=== PATIENT | male | born 1955 | race Caucasian/White ===

== ENCOUNTER → 2017-04-06 | Outpatient (CLI) | payer MEDICARE, OTHER ==
--- NOTE | 2017-04-06 12:59 | XR ---
EXAMINATION TYPE: XR lumbar spine 2 or 3V DATE OF EXAM: 04/06/2017 CLINICAL HISTORY: pain TECHNIQUE: Three views of the lumbar spine are submitted. COMPARISON: None. FINDINGS: There are 5 lumbar type vertebral bodies identified. The lumbar spine shows satisfactory alignment w ithout evidence of acute fracture or dislocation. Vertebral body heights are within normal limits. [id number] degenerative disc space narrowing greatest at 045 and L5-S1. Moderate facet joint ar thropathy. Mild ventral spondylosis. The overlying soft tissue appears unremarkable. IMPRESSION: No acute fracture or dislocation is seen in the lumbar spine. ICD 10 NO FRACTURE, INITIAL EVALUATION
--- NOTE | 2017-04-06 13:04 | XR ---
EXAMINATION TYPE: XR cervical spine comp DATE OF EXAM: 04/06/2017 CLINICAL HISTORY: pain COMPARISON: NONE TECHNIQUE: Frontal, lateral, oblique, swimmers, and open mouth view of the cervical spine are obtaine d. FINDINGS: There is reversal of the normal cervical lordosis which can be seen in patients with muscle spasticity. Severe narrowing noted at C5-6 and C6-7. Endplate sclerosis and facet joint arthropathy. Ventral and dorsal spondylosis identified. Bilateral foraminal encroachment at C5-6. No evidence for fracture or subluxation. IMPRESSION: Degenerative disc disease and spondylosis. Foraminal encroachment at C5-6 bilaterally.
== END | disposition home or self-care (01) ==
LOC: RADXRMAIN 12:00
PROVIDERS: ATTEND Nurse Practitioner
DX: M50.30 Other cervical disc degeneration, unspecified cervical region (principal); M47.812 Spondylosis without myelopathy or radiculopathy, cervical region; M54.5 Low back pain
CPT/HCPCS: 72050; 72100

== ENCOUNTER → 2017-10-02 | Outpatient (CLI) | payer MEDICARE, OTHER ==
[2017-10-01 14:45] VITALS: BMI 33.4
[2017-10-02 13:09] VITALS: BP 179/107; PULSE 76; RESP 20; TEMP 98.1
--- NOTE | 2017-10-02 13:38 | P.CONS ---
History of Present Illness - Reason for Consult Consult date: 10/02/17 - History of Present Illness This is 61 years old male, with a chronic history of severe neck pain, and low back pain, the pain started more than 20 years ago, after accident, and he continued to have severe neck pain with radiation to the left upper extremity associated with numbness and tingling sensation, the pain is constant and increases with any activity, he denies any motor or sensory deficit, he denies any fever or night sweats, denies any change in the bowel movements or urination , and the low back pain localized in the low back area, and is not ready to the lower extremity, intensity of the pain 6-8/10 and increases with any activity Past Medical History Past Medical History: CVA/TIA, Eye Disorder, Hypertension, Myocardial Infarction ([place]) Additional Past Medical History / Comment(s): depression, arthritis, CATARACT LT EYE Last Myocardial Infarction Date:: UNK History of Any Multi-Drug Resistant Organisms: None Reported Additional Past Surgical History / Comment(s): BILAT CORNEA TRANSPLANT. CATARACT RT EYE. TESTICLE REMOVED NOT SURE WHICH ONE. COLONOSCOPY Past Anesthesia/Blood Transfusion Reactions: No Reported Reaction Past Psychological History: Depression, PTSD Smoking Status: Never smoker Past Alcohol Use History: Occasional Past Drug Use History: None Reported - Past Family History Father Family Medical History: Cancer Medications and Allergies Home Medications Medication Instructions Recorded Confirmed Type Unable To Assess [Unable to Assess] 10/01/17 10/01/17 History Allergies Allergy/AdvReac Type Severity Reaction Status Date / Time Latex, Natural Rubber AdvReac Rash/Hives Verified 10/02/17 12:50 Physical Exam Vitals: Vital Signs Temp Pulse Resp BP Pulse Ox 10/02/17 12:54 98.1 F 76 20 179/107 98 Social history : not smoker , NO ETOH , NO Illegal drugs use . Review of Systems : 1- Constitutional : no chills , no fever , no night sweats , 2- Ears : no ear discharge , no change in hearing 3-Nose, Mouth ,Throat ; no bleeding gums, no sore throat , no epistaxis , 4-Cardiovascular : Denies chest pain, , no orthopnea , no palpitation 5-Respiratory : Denies cough , no dyspnea , no hemoptysis 6-Gastrointestinal :, no change in bowel habits , no coffee- ground emesis . 7-Genitourinary : No hematuria , no discharge , no incontinence, 8-Musculoskeletal : No gait dysfunction , report low back pain , neck pain and left upper extremity numbness , 9- Neurological : no ataxia , no tremor , no sezure , 10-Psychatric , no suicidal ideation no hallucination 11- Endocrine : no cold intolerence , no polyuria , no polydypsia , 12-Hematologic : no easy bleeding , no easy brusing , 13-Allergic / immunology : no angioedema , no wheezing ,no allergic rhinitis 14-Integumentary : no brttle nails , no change hair / nails , no foot/leg ulcers . Physical Examinations : 1-Constitutional : Cooperative , not in acute distress . 2-HEENT : nech ; supple , no Lymphadenopathy , no Thyromegaly , :eyes , no icterus, no photophobia . ENT : , normal oropharynx , no Thrush 3- Respiratory : Chest clear to auscultations Bilaterally , no wheezing . 4- Cardiovascular : regular rate and rhythem , S1 , S2 , no S3 , no S4. 5- Gastrointestinal: abdomen soft no tenderness , no organomegally . 6- Genitourinary : Defferred . 7-Integumentary : No cellulitis , no ulcers , normal skin turgor , no cyanotic . 8- neurologic : Cranial nerve II to XII intact , no focal neurological deffecit 9-psychatric : alert , oriented X 3 , appropriate affect , intact judgment and insight . 10-Lymphatic : no Lymphadenopathy. 11- musculoskeltal: normal gait Cervical Spine motor stregnth in the deltoid and biceps, normal right side , normal Left side motor stregnth biceps and the wrist extensors normal right side ,normal left side . motor stregnth in the triceps muscle . normal Right side , normal Left side deep tendon reflexes normal at the biceps , normal at Brachioradialis , normal at triceps. negative cervical facet loading test . Normal sensation in the upper extremity bilaterally Lumber spine moter stegnth lower extremities ,thigh and legs 5/5 Right side , 5/5 Left side deep tendon reflexes : normal Knee Jerk , normal ankle Jerk positive lumber facet Loading Test Range of motion of the lumbar spine Flexion 60 degrees, extension 10 degrees strait leg raising test negative bilaterally Fabere test negative bilaterally. Results Comments: MRI of the cervical spine= 10 Jill Miner in 07/18/2017= C56 disc bulging that is left-sided foraminal encroachment at C3 4 and disc bulging X-ray of the lumbar spine= lumbar degenerative disc disease and lumbar facet arthropathy Assessment and Plan Assessment: Assessment and plan= cervical radiculopathy cervical degenerative disc disease, patient could benefit from cervical epidural steroid injections under fluoroscopy . Low back pain secondary to lumbar spondylosis. Procedure risk and benefits and alternatives discussed with the patient and he agreed with proceeding. Time with Patient: Greater than 30
== END | disposition home or self-care (01) ==
LOC: PNWHC3 12:41
PROVIDERS: ATTEND Specialist
DX: G89.29 Other chronic pain (principal); M50.10 Cervical disc disorder with radiculopathy, unspecified cervical region; M47.816 Spondylosis without myelopathy or radiculopathy, lumbar region; I10 Essential (primary) hypertension; I25.2 Old myocardial infarction; F32.9 Major depressive disorder, single episode, unspecified; F10.20 Alcohol dependence, uncomplicated; Z91.040 Latex allergy status; Z86.73 Personal history of transient ischemic attack (TIA), and cerebral infarction without residual deficits
CPT/HCPCS: 99211

== ENCOUNTER → 2017-10-02 | Outpatient (CLI) | payer MEDICARE, OTHER ==
[2017-10-02 14:31] LABS: Appearance,Urine Clear (Clear); Basophils % (A) 1 %; Bilirubin,Urine Negative (Negative); Blood,Urine Negative (Negative); Color,Urine Yellow; Eosinophils # (A) 0.2 k/uL (0-0.7); Eosinophils % (A) 2 %; Glucose,Urine (UA) Negative (Negative); HCT 46.7 % (39.0-53.0); HGB 14.7 gm/dL (13.0-17.5); Ketones,Urine Negative (Negative); Leukocyte Esterase,Urine Negative (Negative); Lymphocytes % (A) 13 %; MCH 28.4 pg (25.0-35.0); MCHC 31.6 g/dL (31.0-37.0); MCV 89.8 fL (80.0-100.0); Mean Platelet Volume 6.8; Monocytes # (A) 0.4 k/uL (0-1.0); Monocytes % (A) 5 %; Neutrophils # (A) 6.4 k/uL (1.3-7.7); Neutrophils % (A) 79 %; Nitrite,Urine Negative (Negative); PH, Urine 5.5 (5.0-8.0); Platelet Count 209 k/uL (150-450); Protein,Urine Trace (Negative); RDW 13.8 % (11.5-15.5); Specific Gravity,Urine 1.018 (1.001-1.035); WBC 8.1 k/uL (3.8-10.6)
[2017-10-02 14:49] LABS: Albumin 4.4 g/dL (3.5-5.0); Calcium 9.6 mg/dL (8.4-10.2); Phosphorus 3.7 mg/dL (2.5-4.5); Potassium 5.5 mmol/L (3.5-5.1); Total Bilirubin 0.8 mg/dL (0.2-1.3); Total Protein 7.3 g/dL (6.3-8.2)
== END | disposition home or self-care (01) ==
LOC: LABWHC1 13:47
PROVIDERS: ATTEND Nurse Practitioner
DX: I12.9 Hypertensive chronic kidney disease with stage 1 through stage 4 chronic kidney disease, or unspecified chronic kidney disease (principal); N18.9 Chronic kidney disease, unspecified; Z79.899 Other long term (current) drug therapy
CPT/HCPCS: 36415; 80053; 81003; 84100; 85025

== ENCOUNTER → 2017-11-01 | Day surgery (SDC) | payer MEDICARE, OTHER ==
[2017-10-31 08:48] VITALS: BMI 34.2
[~2017-11-01] MED LIST: LACTATED RINGERS 1,000 ML IV SCH
[2017-11-01 07:29] VITALS: BP 124/84; PULSE 65; RESP 18; TEMP 98.1
== END | disposition home or self-care (01) ==
LOC: ORPAIN 06:38
PROVIDERS: ATTEND Specialist
DX: G89.29 Other chronic pain (principal); Z53.8 Procedure and treatment not carried out for other reasons; B88.8 Other specified infestations

== ENCOUNTER 2017-11-15 08:10 | Day surgery (SDC) | payer MEDICARE, OTHER ==
[2017-11-14 08:17] VITALS: BMI 33.4
[2017-11-15 08:23] VITALS: BP 137/89; PULSE 85; RESP 16; TEMP 98.2
[2017-11-15] MEDS ORDERED: LIDOCAINE 1% 20 ML VIAL (10MG/ML) FOR IV START INTRADERMA ONE (08:23)
--- NOTE | 2017-11-15 09:52 | P.PN ---
Progress Note - Text Progress Note Date: 11/15/17 This is a 62 years old male with a chronic history of severe neck pain, radiation to the upper extremity, he was scheduled to have cervical epidural steroid injections, the fluoroscopy guidance, the interview today patient reported that he held held the ELIQUIS only for 36 hours , and the guidelines is to held the Eliquis for 48 hours, the procedure canceled and will be rescheduled , because we don't do pain clinic Sunday/Sunday or Sunday and he will be scheduled, next week or after
== END 2017-11-15 10:15 | disposition home or self-care (01) ==
LOC: ORPAIN 08:10
PROVIDERS: ATTEND Specialist
DX: M54.2 Cervicalgia (principal); Z53.8 Procedure and treatment not carried out for other reasons; Z79.01 Long term (current) use of anticoagulants

== ENCOUNTER 2017-11-19 01:04 | Emergency (ER) | payer MEDICARE, OTHER ==
[2017-11-19 01:16] LABS: Glucose,Whole Blood 93 mg/dL (75-99)
[2017-11-19 02:13] LABS: Basophils % (A) 1 %; Eosinophils # (A) 0.2 k/uL (0-0.7); Eosinophils % (A) 4 %; HCT 41.7 % (39.0-53.0); HGB 13.7 gm/dL (13.0-17.5); Lymphocytes # (A) 1.4 k/uL (1.0-4.8); Lymphocytes % (A) 24 %; MCH 27.9 pg (25.0-35.0); Mean Platelet Volume 7.2; Monocytes # (A) 0.4 k/uL (0-1.0); Monocytes % (A) 7 %; Neutrophils # (A) 3.8 k/uL (1.3-7.7); Neutrophils % (A) 62 %; Platelet Count 202 k/uL (150-450); RBC 4.93 m/uL (4.30-5.90); RDW 14.4 % (11.5-15.5); WBC 6.1 k/uL (3.8-10.6)
[2017-11-19 02:14] LABS: Appearance,Urine Clear (Clear); Bilirubin,Urine Negative (Negative); Blood,Urine Negative (Negative); Color,Urine Light Yellow; Glucose,Urine (UA) Negative (Negative); Ketones,Urine Negative (Negative); Leukocyte Esterase,Urine Negative (Negative); Nitrite,Urine Negative (Negative); Protein,Urine Negative (Negative); Specific Gravity,Urine 1.008 (1.001-1.035); Urobilinogen,Urine <2.0 mg/dL (<2.0)
--- NOTE | 2017-11-19 02:18 | ED ---
Dizziness HPI - General Chief Complaint: Dizziness Stated Complaint: Syncope Time Seen by Provider: 11/19/17 01:06 Source: patient, family, EMS Mode of arrival: EMS Limitations: no limitations - History of Present Illness Initial Comments: This patient is 62-year-old man who presents to be evaluated for "dizziness" that is been going on over the course of this evening. The patient states that he had gotten up to use the bathroom and when he stood up he felt lightheaded. He notes that he had taken his sleeping pill probably about an hour before the symptoms came on. He felt like his vision was going out and then he believes she passed out. He was able to get up and then he noticed that after he got up he was feeling lightheaded and believes that he may have passed out a second time as well. He denies any trauma stating that he doesn't think that he injured anything. He denies head or neck pain, no chest, back, abdomen or extremity pain. The patient denies diaphoresis, dyspnea, palpitations, nausea or vomiting. MD Complaint: lightheadedness, near syncope -: hour(s) Timing: sudden onset Description: lightheadedness History of Same: Yes History of Trauma: No Severity: moderate Associated Symptoms: denies other symptoms - Related Data Home Medications Medication Instructions Recorded Confirmed Atorvastatin [Lipitor] 10 mg PO DAILY 10/02/17 11/14/17 DULoxetine HCL [Cymbalta] 60 mg PO BID 10/02/17 11/14/17 Gabapentin [Neurontin] 600 mg PO TID 10/02/17 11/14/17 Metoprolol Tartrate [Lopressor] 50 mg PO BID 10/02/17 11/14/17 Omeprazole [Omeprazole] 20 mg PO DAILY 10/02/17 11/14/17 QUEtiapine [SEROquel] 200 mg PO HS 10/02/17 11/14/17 cloNIDine HCL [Catapres] 0.1 mg PO BID 10/02/17 11/14/17 Albuterol Inhaler [Ventolin Hfa 1 - 2 puff INHALATION Q6HR PRN 10/31/17 11/14/17 Inhaler] Apixaban [Eliquis] 2.5 mg PO BID 10/31/17 11/14/17 Ergocalciferol (Vitamin D2) 50,000 unit PO Q7D 10/31/17 11/14/17 [Vitamin D2] amLODIPine [Norvasc] 10 mg PO DAILY 10/31/17 11/14/17 Acetaminophen [Tylenol] 325 mg PO Q4H 11/14/17 11/14/17 Cyanocobalamin [Vitamin B-12 1,000 mcg SQ WEEKLY 11/14/17 11/14/17 Injection] Allergies Allergy/AdvReac Type Severity Reaction Status Date / Time Latex, Natural Rubber AdvReac Rash/Hives Verified 11/19/17 01:10 Review of Systems ROS Statement: Those systems with pertinent positive or pertinent negative responses have been documented in the HPI. ROS Other: All systems not noted in ROS Statement are negative. Constitutional: Denies: fever, chills Eyes: Denies: vision change Respiratory: Denies: cough, dyspnea Cardiovascular: Reports: syncope. Denies: chest pain, palpitations, orthopnea, edema Gastrointestinal: Denies: abdominal pain, nausea, vomiting Musculoskeletal: Denies: back pain Skin: Denies: rash Neurological: Denies: headache, weakness, numbness, confusion Past Medical History Past Medical History: CVA/TIA, Eye Disorder, Hypertension, Myocardial Infarction ([place]) Additional Past Medical History / Comment(s): depression, arthritis, CATARACT LT EYE, eye sight is very poor, occasional dizziness, hx bed bugs in home, , Last Myocardial Infarction Date:: UNK History of Any Multi-Drug Resistant Organisms: None Reported Additional Past Surgical History / Comment(s): BILAT CORNEA TRANSPLANT. CATARACT RT EYE. TESTICLE REMOVED NOT SURE WHICH ONE. COLONOSCOPY, Past Anesthesia/Blood Transfusion Reactions: No Reported Reaction Past Psychological History: Depression, PTSD Smoking Status: Never smoker Past Alcohol Use History: None Reported Past Drug Use History: None Reported - Past Family History Father Family Medical History: Cancer General Exam Limitations: no limitations General appearance: alert, in no apparent distress Head exam: Present: atraumatic, normocephalic Eye exam: Present: normal appearance. Absent: scleral icterus, conjunctival injection Pupils: Present: miosis ENT exam: Present: mucous membranes dry, TM's normal bilaterally Neck exam: Present: normal inspection, full ROM. Absent: tenderness Respiratory exam: Present: normal lung sounds bilaterally. Absent: respiratory distress, wheezes, rales, rhonchi, stridor, chest wall tenderness Cardiovascular Exam: Present: regular rate, normal rhythm, normal heart sounds. Absent: systolic murmur, diastolic murmur, rubs, gallop GI/Abdominal exam: Present: soft, normal bowel sounds. Absent: distended, tenderness, guarding, rebound, rigid, mass Extremities exam: Present: normal inspection, normal capillary refill. Absent: pedal edema, calf tenderness Back exam: Present: normal inspection. Absent: CVA tenderness (R), CVA tenderness (L) Neurological exam: Absent: altered, oriented X3, motor sensory deficit Skin exam: Present: warm, dry, intact, normal color. Absent: rash Course Vital Signs 11/19/17 11/19/17 11/19/17 01:05 01:19 03:02 Temperature 97.1 F L 96.9 F L Pulse Rate 68 83 65 Respiratory 18 18 15 Rate Blood Pressure 109/67 96/60 130/77 O2 Sat by Pulse 98 100 100 Oximetry 11/19/17 03:48 Temperature 97.8 F Pulse Rate 74 Respiratory 18 Rate Blood Pressure 108/73 O2 Sat by Pulse 100 Oximetry EKG Findings - EKG Results: EKG: interpreted by ERMD, normal axis, normal QRS, normal ST/T EKG shows: atrial fibrillation (rate 89 bpm) Medical Decision Making - Lab Data Result diagrams: 11/19/17 01:29 11/19/17 01:29 Lab Results 11/19/17 11/19/17 11/19/17 Range/Units 01:13 01:29 01:29 WBC 6.1 (3.8-10.6) k/uL RBC 4.93 (4.30-5.90) m/uL Hgb 13.7 (13.0-17.5) gm/dL Hct 41.7 (39.0-53.0) % MCV 84.6 D (80.0-100.0) fL MCH 27.9 (25.0-35.0) pg MCHC 33.0 (31.0-37.0) g/dL RDW 14.4 (11.5-15.5) % Plt Count 202 (150-450) k/uL Neutrophils % 62 % Lymphocytes % 24 % Monocytes % 7 % Eosinophils % 4 % Basophils % 1 % Neutrophils # 3.8 (1.3-7.7) k/uL Lymphocytes # 1.4 (1.0-4.8) k/uL Monocytes # 0.4 (0-1.0) k/uL Eosinophils # 0.2 (0-0.7) k/uL Basophils # 0.0 (0-0.2) k/uL PT (9.0-12.0) sec INR (<1.2) APTT (22.0-30.0) sec Sodium 141 (137-145) mmol/L Potassium 4.3 (3.5-5.1) mmol/L Chloride 105 (98-107) mmol/L Carbon Dioxide 22 (22-30) mmol/L Anion Gap 14 mmol/L BUN 24 H (9-20) mg/dL Creatinine 1.60 H (0.66-1.25) mg/dL Est GFR (CKD-EPI)AfAm 53 (>60 ml/min/1.73 sqM) Est GFR (CKD-EPI)NonAf 45 (>60 ml/min/1.73 sqM) Glucose 91 (74-99) mg/dL POC Glucose (mg/dL) 93 (75-99) mg/dL POC Glu Strap Machine Operator ID Amanda Link Plasma Lactic Acid Finesse (0.7-2.0) mmol/L Calcium 9.4 (8.4-10.2) mg/dL Magnesium 2.2 (1.6-2.3) mg/dL Total Bilirubin 0.6 (0.2-1.3) mg/dL AST 22 (17-59) U/L ALT 24 (21-72) U/L Alkaline Phosphatase 65 (38-126) U/L Troponin I (0.000-0.034) ng/mL Total Protein 6.8 (6.3-8.2) g/dL Albumin 4.0 (3.5-5.0) g/dL Urine Color Urine Appearance (Clear) Urine pH (5.0-8.0) Ur Specific [place] (1.001-1.035) Urine Protein (Negative) Urine Glucose (UA) (Negative) Urine Ketones (Negative) Urine Blood (Negative) Urine Nitrite (Negative) Urine Bilirubin (Negative) Urine Urobilinogen (<2.0) mg/dL Ur Leukocyte Esterase (Negative) 04/09/18 04/09/18 04/09/18 Range/Units 01:29 01:29 01:50 WBC (3.8-10.6) k/uL RBC (4.30-5.90) m/uL Hgb (13.0-17.5) gm/dL Hct (39.0-53.0) % MCV (80.0-100.0) fL MCH (25.0-35.0) pg MCHC (31.0-37.0) g/dL RDW (11.5-15.5) % Plt Count (150-450) k/uL Neutrophils % % Lymphocytes % % Monocytes % % Eosinophils % % Basophils % % Neutrophils # (1.3-7.7) k/uL Lymphocytes # (1.0-4.8) k/uL Monocytes # (0-1.0) k/uL Eosinophils # (0-0.7) k/uL Basophils # (0-0.2) k/uL PT (9.0-12.0) sec INR (<1.2) APTT (22.0-30.0) sec Sodium (137-145) mmol/L Potassium (3.5-5.1) mmol/L Chloride (98-107) mmol/L Carbon Dioxide (22-30) mmol/L Anion Gap mmol/L BUN (9-20) mg/dL Creatinine (0.66-1.25) mg/dL Est GFR (CKD-EPI)AfAm (>60 ml/min/1.73 sqM) Est GFR (CKD-EPI)NonAf (>60 ml/min/1.73 sqM) Glucose (74-99) mg/dL POC Glucose (mg/dL) (75-99) mg/dL POC Glu Strap Machine Operator ID Plasma Lactic Acid Finesse 1.2 (0.7-2.0) mmol/L Calcium (8.4-10.2) mg/dL Magnesium (1.6-2.3) mg/dL Total Bilirubin (0.2-1.3) mg/dL AST (17-59) U/L ALT (21-72) U/L Alkaline Phosphatase (38-126) U/L Troponin I <0.012 (0.000-0.034) ng/mL Total Protein (6.3-8.2) g/dL Albumin (3.5-5.0) g/dL Urine Color Light Yellow Urine Appearance Clear (Clear) Urine pH 5.0 (5.0-8.0) Ur Specific [place] 1.008 (1.001-1.035) Urine Protein Negative (Negative) Urine Glucose (UA) Negative (Negative) Urine Ketones Negative (Negative) Urine Blood Negative (Negative) Urine Nitrite Negative (Negative) Urine Bilirubin Negative (Negative) Urine Urobilinogen <2.0 (<2.0) mg/dL Ur Leukocyte Esterase Negative (Negative) 11/19/17 Range/Units 02:13 WBC (3.8-10.6) k/uL RBC (4.30-5.90) m/uL Hgb (13.0-17.5) gm/dL Hct (39.0-53.0) % MCV (80.0-100.0) fL MCH (25.0-35.0) pg MCHC (31.0-37.0) g/dL RDW (11.5-15.5) % Plt Count (150-450) k/uL Neutrophils % % Lymphocytes % % Monocytes % % Eosinophils % % Basophils % % Neutrophils # (1.3-7.7) k/uL Lymphocytes # (1.0-4.8) k/uL Monocytes # (0-1.0) k/uL Eosinophils # (0-0.7) k/uL Basophils # (0-0.2) k/uL PT 10.5 (9.0-12.0) sec INR 1.1 (<1.2) APTT 24.7 (22.0-30.0) sec Sodium (137-145) mmol/L Potassium (3.5-5.1) mmol/L Chloride (98-107) mmol/L Carbon Dioxide (22-30) mmol/L Anion Gap mmol/L BUN (9-20) mg/dL Creatinine (0.66-1.25) mg/dL Est GFR (CKD-EPI)AfAm (>60 ml/min/1.73 sqM) Est GFR (CKD-EPI)NonAf (>60 ml/min/1.73 sqM) Glucose (74-99) mg/dL POC Glucose (mg/dL) (75-99) mg/dL POC Glu Strap Machine Operator ID Plasma Lactic Acid Finesse (0.7-2.0) mmol/L Calcium (8.4-10.2) mg/dL Magnesium (1.6-2.3) mg/dL Total Bilirubin (0.2-1.3) mg/dL AST (17-59) U/L ALT (21-72) U/L Alkaline Phosphatase (38-126) U/L Troponin I (0.000-0.034) ng/mL Total Protein (6.3-8.2) g/dL Albumin (3.5-5.0) g/dL Urine Color Urine Appearance (Clear) Urine pH (5.0-8.0) Ur Specific [place] (1.001-1.035) Urine Protein (Negative) Urine Glucose (UA) (Negative) Urine Ketones (Negative) Urine Blood (Negative) Urine Nitrite (Negative) Urine Bilirubin (Negative) Urine Urobilinogen (<2.0) mg/dL Ur Leukocyte Esterase (Negative) Disposition Clinical Impression: Orthostatic hypotension Disposition: HOME SELF-CARE Condition: Good Instructions: Syncope (ED) Referrals: Shanda Bobo MD [Primary Care Provider] - 1-2 days
[2017-11-19 02:19] LABS: MCV 84.6 fL (80.0-100.0)
[2017-11-19 02:21] LABS: Calcium 9.4 mg/dL (8.4-10.2); Magnesium 2.2 mg/dL (1.6-2.3); Potassium 4.3 mmol/L (3.5-5.1); Total Bilirubin 0.6 mg/dL (0.2-1.3); Total Protein 6.8 g/dL (6.3-8.2)
[2017-11-19 02:38] LABS: INR 1.1 (<1.2); Partial Thromboplastin Time 24.7 sec (22.0-30.0); Prothrombin Time 10.5 sec (9.0-12.0)
--- NOTE | 2017-11-19 03:04 | XR ---
EXAM: XR Chest, 1 View CLINICAL HISTORY: XR Reason: fall TECHNIQUE: Frontal view of the chest. COMPARISON: No relevant prior studies available. FINDINGS: Lungs: There is elevation of the left hemidiaphragm with linear adjacent to presumed atelectasis at the left base. Pleural space: Unremarkable. No pneumothorax. Heart: Unremarkable. No cardiomegaly. Mediastinum: Unremarkable. Bones/joints: No obvious acute osseous traumatic injury. IMPRESSION: 1. There is elevation of the left hemidiaphragm with linear adjacent presumed atelectasis at the left base. No large pleural effusion or pneumothorax. 2. No obvious acute osseous traumatic injury. If there is focal rib tenderness, dedicated rib series may be helpful.
[2017-11-19 03:49] VITALS: RESP 18; TEMP 97.8
[2017-11-19 04:47] VITALS: BP 111/79; PULSE 78
== END 2017-11-19 05:01 | disposition home or self-care (01) ==
LOC: EC 01:04
DX: I95.1 Orthostatic hypotension (principal); F32.9 Major depressive disorder, single episode, unspecified; I25.2 Old myocardial infarction; I10 Essential (primary) hypertension; M19.90 Unspecified osteoarthritis, unspecified site; Z91.040 Latex allergy status; Z86.73 Personal history of transient ischemic attack (TIA), and cerebral infarction without residual deficits; Z79.01 Long term (current) use of anticoagulants; Z79.899 Other long term (current) drug therapy
CPT/HCPCS: 36415; 71045; 80053; 81003; 83605; 83735; 84484; 85025; 85610; 85730; 99285

== ENCOUNTER 2017-12-12 09:01 | Day surgery (SDC) | payer MEDICARE, OTHER ==
[2017-12-07 12:31] VITALS: BMI 33.4
[2017-12-12 10:36] VITALS: RESP 16; TEMP 98
[2017-12-12] MEDS ORDERED: LIDOCAINE 1% 20 ML VIAL (10MG/ML) FOR IV START INTRADERMA ONE (10:37)
--- NOTE | 2017-12-12 10:49 | P.OP ---
Date of Procedure: 12/12/17 Surgeon: Heath Mendoza Description of Procedure: . PROCEDURE 1. Cervical epidural steroid injection under fluoroscopic guidance, C7-T1 PREOPERATIVE DIAGNOSIS: 1- Cervical Degenerative Disc Diseases 2- Cervical radiculopathy., POSTOPERATIVE DIAGNOSIS: : 1- Cervical Degenerative Disc Diseases , 2- Cervical radiculopathy. ANESTHESIA: Local anesthesia with 1% lidocaine and IV sedation with Versed 2 mg EBL 0 PROCEDURE INDICATION: The patient with neck pain and radiculitis unresponsive to conservative treatment consents for procedure. The patient reports having left arm numbness and right arm weakness. His MRI demonstrates disc pathology at C5 6. He has discontinued his blood thinner under the guidance of his prescribing physician. PROCEDURE DESCRIPTION / TECHNIQUE: The patient was seen and identified in the preoperative area. Risks, benefits, complications, including but not limited to infections ,bleeding , allergic reactions to the medications , failure to relieve pain and increase in pain. Alternatives were discussed with the patient , the patient agreed to proceed with the procedure and signed the consent. Patient was taken to the OR and time out was completed. The patient was placed in the prone position on the procedure table. A pillow was placed under the patients chest to increase the cervical interlaminar space. The cervical area was prepped and draped in the usual sterile fashion. Vital signs were closely monitored during the procedure. Conscious sedation was used during the procedure to decrease patients anxiety. Using anterior-posterior fluoroscopy, the C7-T1 interlaminar space was identified and the skin over this site was marked and then infiltrated with 1% lidocaine subcutaneously. Subsequently, a 20-gauge 3-1/2-inch Tuohy epidural needle was inserted and advanced toward the epidural space by means of the loss of resistance technique and guided by AP and lateral fluoroscopy. The correct needle position in the epidural space was verified in the AP and lateral projection. Again after negative aspiration, mixture containing 20 mg Dexamethasone and 2 ml of preservative-free normal saline injected Needle was withdrawn intact, skin was cleansed, and bandages were applied. Complications= none. Disposition= patient was placed in supine position and transferred to the recovery room area in stable condition and there was no evidence of upper or lower extremity motor or sensory deficit after the procedure patient was discharged from recovery room after discharge criteria met and home discharge instructions was given by the staff and patient will follow with the pain clinic in 2-4 weeks
[2017-12-12] MEDS ORDERED: IV FLUID CONTINUATION 1,000 ML IV ONE (11:12)
--- NOTE | 2017-12-12 11:28 | FL ---
EXAMINATION TYPE: FL guided pain mgmt statistic DATE OF EXAM: 12/12/2017 HISTORY: Pain cervical epidural 1 sec fl time used and 1 image scanned into pacs doctor pisano
[2017-12-12 11:53] VITALS: BP 131/77; PULSE 88
== END 2017-12-12 12:01 | disposition home or self-care (01) ==
LOC: ORPAIN 09:01
PROVIDERS: ATTEND Pain Medicine Pain Medicine
DX: M50.10 Cervical disc disorder with radiculopathy, unspecified cervical region (principal); Z91.040 Latex allergy status
CPT/HCPCS: 62321; J2250; J1100

== ENCOUNTER 2018-01-09 08:20 | Day surgery (SDC) | payer MEDICARE, OTHER ==
[2018-01-03 09:55] VITALS: BMI 32.8
[2018-01-09 08:47] VITALS: RESP 16; TEMP 97.4
[2018-01-09] MEDS ORDERED: LIDOCAINE 1% 20 ML VIAL (10MG/ML) FOR IV START INTRADERMA ONE (08:56)
--- NOTE | 2018-01-09 09:35 | P.PCN ---
Date of Procedure: 01/09/18 Surgeon: Megha Constantino Description of Procedure: PROCEDURE 1. Cervical epidural steroid injection under fluoroscopic guidance, C7-T1 PREOPERATIVE DIAGNOSIS: 1- Cervical Degenerative Disc Diseases 2- Cervical radiculopathy., POSTOPERATIVE DIAGNOSIS: : 1- Cervical Degenerative Disc Diseases , 2- Cervical radiculopathy. ANESTHESIA: Local anesthesia with 1% lidocaine and IV sedation with Versed 2 mg EBL 0 PROCEDURE INDICATION: The patient with neck pain and radiculitis unresponsive to conservative treatment consents for procedure. The patient reports having left arm numbness and right arm weakness. His MRI demonstrates disc pathology at C5 6. He has discontinued his blood thinner under the guidance of his prescribing physician. PROCEDURE DESCRIPTION / TECHNIQUE: The patient was seen and identified in the preoperative area. Risks, benefits, complications, including but not limited to infections ,bleeding , allergic reactions to the medications , failure to relieve pain and increase in pain. Alternatives were discussed with the patient , the patient agreed to proceed with the procedure and signed the consent. Patient was taken to the OR and time out was completed. The patient was placed in the prone position on the procedure table. A pillow was placed under the patients chest to increase the cervical interlaminar space. The cervical area was prepped and draped in the usual sterile fashion using ChloraPrep. Vital signs were closely monitored during the procedure. Conscious sedation was used during the procedure to decrease patients anxiety. Using anterior-posterior fluoroscopy, the C7-T1 interlaminar space was identified and the skin over this site was marked and then infiltrated with 1% lidocaine subcutaneously. Subsequently, a 20-gauge 3-1/2-inch Tuohy epidural needle was inserted and advanced toward the epidural space by means of the loss of resistance technique in the right paramedian approach. The correct needle position in the epidural space was verified in the AP and lateral projection. Again after negative aspiration, mixture containing 10 mg Dexamethasone and 4 ml of preservative-free normal saline injected Needle was withdrawn intact, skin was cleansed, and bandages were applied. Complications= none. Disposition= patient was placed in supine position and transferred to the recovery room area in stable condition and there was no evidence of upper or lower extremity motor or sensory deficit after the procedure patient was discharged from recovery room after discharge criteria met and home discharge instructions was given by the staff and patient will follow with the pain clinic in 2-4 weeks
[2018-01-09] MEDS ORDERED: IV FLUID CONTINUATION 1,000 ML IV ONE ×2 (09:41)
[2018-01-09 09:45] VITALS: PULSE 62
[2018-01-09 10:02] VITALS: BP 122/82
--- NOTE | 2018-01-09 10:07 | FL ---
Fluoroscopy HISTORY: Pain 5 seconds fluoroscopy time supplied to the referring clinician. 1 intraoperative C-arm images docume nt the procedure. See dictated report from anesthesia.
== END 2018-01-09 10:25 | disposition home or self-care (01) ==
LOC: ORPAIN 08:20
PROVIDERS: ATTEND Anesthesiology
DX: M50.122 Cervical disc disorder at C5-C6 level with radiculopathy (principal); I10 Essential (primary) hypertension; I25.10 Atherosclerotic heart disease of native coronary artery without angina pectoris; Z79.01 Long term (current) use of anticoagulants; Z91.040 Latex allergy status
CPT/HCPCS: 62321; J2250; J1100; Q9966; 99152

== ENCOUNTER → 2018-01-09 | Outpatient (CLI) | payer MEDICARE, OTHER ==
[2018-01-09 11:22] LABS: HCT 39.6 % (39.0-53.0); HGB 13.2 gm/dL (13.0-17.5); MCH 29.8 pg (25.0-35.0); MCHC 33.3 g/dL (31.0-37.0); MCV 89.3 fL (80.0-100.0); Mean Platelet Volume 6.7; Platelet Count 226 k/uL (150-450); RBC 4.44 m/uL (4.30-5.90); RDW 14.6 % (11.5-15.5); WBC 5.7 k/uL (3.8-10.6)
[2018-01-09 11:25] LABS: Appearance,Urine Clear (Clear); Bilirubin,Urine Negative (Negative); Blood,Urine Negative (Negative); Color,Urine Yellow; Glucose,Urine (UA) Negative (Negative); Ketones,Urine Negative (Negative); Leukocyte Esterase,Urine Negative (Negative); Nitrite,Urine Negative (Negative); Protein,Urine Trace (Negative); Specific Gravity,Urine 1.022 (1.001-1.035)
[2018-01-09 11:28] LABS: Albumin 4.1 g/dL (3.5-5.0); Calcium 8.8 mg/dL (8.4-10.2); Magnesium 2.2 mg/dL (1.6-2.3); Phosphorus 3.7 mg/dL (2.5-4.5); Potassium 4.6 mmol/L (3.5-5.1); Total Bilirubin 0.9 mg/dL (0.2-1.3); Total Protein 6.5 g/dL (6.3-8.2); Uric Acid 8.7 mg/dL (3.5-8.5)
[2018-01-09 11:52] LABS: Creatinine,Urine Random 294.5 mg/dL
[2018-01-09 17:31] LABS: Iron Saturation 29.01 (15.00-50.00)
[2018-01-09 17:42] LABS: Vitamin D 25 Hydroxy 14.4 ng/mL (30.0-100.0)
[2018-01-09 18:13] LABS: Parathyroid Hormone Intact 131.8 pg/mL (14.0-72.0)
== END | disposition home or self-care (01) ==
LOC: LABWHC1 10:31
PROVIDERS: ATTEND Internal Medicine
DX: N18.3 Chronic kidney disease, stage 3 (moderate) (principal); D64.9 Anemia, unspecified; N39.0 Urinary tract infection, site not specified; R80.9 Proteinuria, unspecified; E21.3 Hyperparathyroidism, unspecified; E55.9 Vitamin D deficiency, unspecified; M10.9 Gout, unspecified
CPT/HCPCS: 36415; 80053; 81003; 82306; 82570; 82728; 83540; 83550; 83735; 83970; 84100; 84156; 84550; 85027

== ENCOUNTER → 2018-02-25 | Outpatient (CLI) | payer MEDICARE, OTHER ==
[2018-02-25 15:20] VITALS: BP 128/81; PULSE 70; RESP 18
--- NOTE | 2018-02-25 15:40 | P.PN ---
Subjective Progress Note Date: 02/25/18 Principal diagnosis: Neck pain and headache This is a 62-year-old male with history of atrial flutter and treatment with Elequis. He was seen in our clinic for neck pain with radiation to the arms. He received 2 cervical epidural steroid injection which helped his pain significantly and today he does not complain of any neck pain however he complains of frontal headache. The patient has a history of chronic migraine headache resistant to treatment including Topamax previously. He describes his headache as throbbing and is usually associated with photophobia however he does not get nausea or vomiting with it. His headach happens a 3 times per week at least. The patient denies any bowel or bladder dysfunction or any weakness in the upper or lower extremities. Objective - Vital Signs Vital signs: Vital Signs Temp Pulse 70 02/25/18 15:11 Resp 18 02/25/18 15:11 BP 128/81 02/25/18 15:11 Pulse Ox 98 02/25/18 15:11 Intake & Output 02/24/18 02/25/18 02/25/18 18:59 06:59 18:59 Weight 99.79 kg - Constitutional General appearance: Present: obese - EENT Eyes: Present: PERRLA - Neurologic Neurologic: Present: CNII-XII intact - Psychiatric Psychiatric: Present: A&O x's 3, appropriate affect Assessment and Plan Plan: A 62-year-old gentleman with history of chronic migraine headache and neck pain. His neck pain has resolved after 2 cervical epidural steroid injections. The patient will be seen in our clinic on an as-needed basis if he starts to complain again of neck pain. I will refer the patient to neurology for his history of chronic migraine headache, which has been resistant to multiple treatments before. Of note the patient is on anticoagulants for his history of atrial flutter/fibrillation.
== END | disposition home or self-care (01) ==
LOC: PNWHC3 14:15
PROVIDERS: ATTEND Anesthesiology
DX: G43.909 Migraine, unspecified, not intractable, without status migrainosus (principal); M54.2 Cervicalgia; Z79.899 Other long term (current) drug therapy; Z86.79 Personal history of other diseases of the circulatory system
CPT/HCPCS: 99211

== ENCOUNTER → 2018-05-09 | Outpatient (CLI) | payer MEDICARE, OTHER ==
[2018-05-09 17:54] LABS: HCT 41.3 % (39.0-53.0); HGB 13.8 gm/dL (13.0-17.5); MCH 30.2 pg (25.0-35.0); MCHC 33.3 g/dL (31.0-37.0); MCV 90.6 fL (80.0-100.0); Mean Platelet Volume 7.1; Platelet Count 231 k/uL (150-450); RBC 4.56 m/uL (4.30-5.90); RDW 13.7 % (11.5-15.5); WBC 7.3 k/uL (3.8-10.6)
[2018-05-09 17:56] LABS: Appearance,Urine Clear (Clear); Bilirubin,Urine Negative (Negative); Blood,Urine Negative (Negative); Color,Urine Yellow; Glucose,Urine (UA) Negative (Negative); Ketones,Urine Negative (Negative); Leukocyte Esterase,Urine Negative (Negative); Nitrite,Urine Negative (Negative); PH, Urine 5.5 (5.0-8.0); Protein,Urine Negative (Negative); Specific Gravity,Urine 1.007 (1.001-1.035); Urobilinogen,Urine <2.0 mg/dL (<2.0)
[2018-05-09 18:01] LABS: Calcium 9.2 mg/dL (8.4-10.2); Magnesium 2.1 mg/dL (1.6-2.3); Phosphorus 4.4 mg/dL (2.5-4.5); Potassium 4.7 mmol/L (3.5-5.1); Total Bilirubin 0.5 mg/dL (0.2-1.3); Uric Acid 7.5 mg/dL (3.5-8.5)
[2018-05-09 18:47] LABS: Collection Time,Urine 24 hrs; Total Volume 24 Hour,Urine 2500 mls (800-1800)
[2018-05-09 19:13] LABS: Total Protein 24 Hour,Urine 275 mg/24hr (42.0-225.0)
[2018-05-10 02:37] LABS: Vitamin D 25 Hydroxy 16.7 ng/mL (30.0-100.0)
[2018-05-10 02:38] LABS: Parathyroid Hormone Intact 108.1 pg/mL (14.0-72.0)
[2018-05-10 03:30] LABS: Iron Saturation 26.01 (15.00-50.00)
[2018-05-10 04:04] LABS: DNA Double-Stranded NEGATIVE (NEGATIVE)
== END | disposition home or self-care (01) ==
LOC: LABWHC1 16:25
PROVIDERS: ATTEND Nurse Practitioner Family
DX: E79.0 Hyperuricemia without signs of inflammatory arthritis and tophaceous disease (principal); R80.9 Proteinuria, unspecified; N18.3 Chronic kidney disease, stage 3 (moderate); D63.1 Anemia in chronic kidney disease; E55.9 Vitamin D deficiency, unspecified; N39.0 Urinary tract infection, site not specified
CPT/HCPCS: 36415; 80053; 81003; 81050; 82306; 82570; 82728; 83516; 83540; 83550; 83735; 83883; 83970; 84100; 84156; 84550; 85027; 86038; 86160; 86162; 86225; 86255; 86334

== ENCOUNTER → 2018-09-12 | Outpatient (CLI) | payer MEDICARE, OTHER ==
[2018-09-12 17:10] LABS: T4, Free (Free Thyroxine) 1.1 ng/dL (0.80-1.80)
[2018-09-12 17:43] LABS: Lithium 0.6 mmol/L (1.0-1.2)
[2018-09-12 17:44] LABS: Hemoglobin A1C 5.2 % (4.0-6.0)
== END | disposition home or self-care (01) ==
LOC: LABWHC1 10:17
PROVIDERS: ATTEND Psychiatry & Neurology Psychiatry
DX: Z51.81 Encounter for therapeutic drug level monitoring (principal); Z79.899 Other long term (current) drug therapy
CPT/HCPCS: 36415; 80061; 80178; 82565; 82947; 83036; 84439; 84443; 84520